=== PATIENT | male | born 1945 | race Caucasian/White ===

== ENCOUNTER 2020-03-26 19:42 | Inpatient (IN) ==
[2020-03-26 20:31] LABS: Basophils % 0.2 %; Hemoglobin 12.5 g/dL (12.9-16.9); Immature Granulocytes % 0.2 % (0-4); Lymphocytes # 0.6 K/mcL (0.6-4.6); Lymphocytes % 12.6 %; Mean Corpuscular HGB Conc 32.9 g/dL (31.6-35.5); Mean Corpuscular Hemoglobin 28.8 pg (28.0-33.3); Mean Corpuscular Volume 87.6 fL (83.0-100.0); Mean Platelet Volume 10.8 fL (9.4-12.4); Monocytes # 0.2 K/mcL (0.0-1.3); Monocytes % 4.3 %; Neutrophils # 3.8 K/mcL (1.6-8.9); Platelet Count 144 K/mcL (140-400); Red Blood Count 4.34 M/mcL (4.19-5.50); Red Cell Distribution Width 13.1 % (11.5-14.5); Segmented Neutrophils % 82.7 %; White Blood Count 4.6 K/mcL (4.3-11.1)
[2020-03-26 20:52] LABS: BUN/Creatinine Ratio 22 (6-26); Blood Urea Nitrogen 44 mg/dL (8-23); Calcium 8.1 mg/dL (8.6-10.3); Carbon Dioxide 19 mEq/L (23-29); Chloride 98 mEq/L (98-107); Glucose 258 mg/dL (70-105); Osmolality,Calculated 286 (280-300); Potassium 4.7 mEq/L (3.5-5.1); Sodium 128 mEq/L (136-145); Troponin I < 0.03 ng/mL (< 0.04); eGFR For African Americans 39 (> 60); eGFR For Non-African Americans 32 (> 60)
[2020-03-26] MEDS ORDERED: 0.9 % Sodium Chloride 1,000 ML IVC ONE (20:58)
[2020-03-27] MEDS ORDERED: Ondansetron 4 MG/2 ML VIAL IVP PRN (00:52)
[2020-03-27] MEDS ORDERED: Naloxone 0.4 MG/ML INJ IVP PRN (00:52)
[2020-03-27] MEDS ORDERED: Dextrose Gel 15 GM/37.5 ML TUBE PO PRN ×2 (00:58)
[2020-03-27] MEDS ORDERED: D5% in Water 1,000 ML IVC PRN (00:58)
[2020-03-27] MEDS ORDERED: *HR* Dextrose 50 % in Water (Vial) 50 ML VIAL IVP PRN (00:58)
[2020-03-27] MEDS ORDERED: Azithromycin 500 MG in 0.9 % Sodium Chloride 250 ML IVPB SCH (01:00)
[2020-03-27] MEDS ORDERED: levoFLOXacin 750 MG/150 ML 750 MG/150 ML BAG IVPB SCH (02:00)
[2020-03-27] MEDS: 0.9 % Sodium Chloride 1,000 ML IVC SCH ×2 (02:13→21:09)
[2020-03-27] MEDS: Gabapentin 300 MG CAPSULE PO SCH ×3 (02:13→21:13)
[2020-03-27 05:28] LABS: Protein/Creatinine Ratio,Urine 0.71 mg/mg (0.00-0.20); Sodium, Urine 58.6 mEq/L
[2020-03-27] MEDS ORDERED: *HR* Enoxaparin 40 MG/0.4 ML SYRINGE SQ SCH (06:00)
[2020-03-27 06:20] LABS: Hematocrit 36.4 % (37.5-50.1); Hemoglobin 11.9 g/dL (12.9-16.9); Immature Granulocytes % 0.7 % (0-4); Lymphocytes # 0.5 K/mcL (0.6-4.6); Lymphocytes % 11.7 %; Mean Corpuscular HGB Conc 32.7 g/dL (31.6-35.5); Mean Corpuscular Hemoglobin 28.9 pg (28.0-33.3); Mean Corpuscular Volume 88.3 fL (83.0-100.0); Mean Platelet Volume 11.1 fL (9.4-12.4); Monocytes # 0.2 K/mcL (0.0-1.3); Monocytes % 3.6 %; Neutrophils # 3.5 K/mcL (1.6-8.9); Platelet Count 140 K/mcL (140-400); Red Blood Count 4.12 M/mcL (4.19-5.50); Red Cell Distribution Width 13.1 % (11.5-14.5); White Blood Count 4.2 K/mcL (4.3-11.1)
[2020-03-27 06:27] LABS: INR 1.6; Prothrombin Time 17.9 Seconds (9.4-12.1)
[2020-03-27 06:44] LABS: Albumin 3.4 g/dL (3.5-5.7); Albumin/Globulin Ratio 1.2 (1.1-2.2); Bilirubin,Total 0.4 mg/dL (0.3-1.0); Calcium 7.7 mg/dL (8.6-10.3); Chol/HDL Ratio 2.9 (0-4.9); Globulin 2.9 g/dL (2.4-3.5); Magnesium 1.9 mg/dL (1.6-2.6); Phosphorous 3.5 mg/dL (2.7-4.5); Potassium 4.7 mEq/L (3.5-5.1); Total Protein 6.3 g/dL (6.4-8.9)
[2020-03-27] MEDS: Insulin LISPRO 300 UNITS/3 ML VIAL SUBQ SCH ×4 (08:38→21:09)
[2020-03-27] MEDS ORDERED: cefTRIAXone 1,000 MG in Water for inj. (sterile) 10 ML IVP SCH (09:00)
[2020-03-27] MEDS: Apixaban 5 MG TABLET PO SCH ×2 (09:07→21:13)
[2020-03-27] MEDS: Dexamethasone Sodium Phos/PF 10 MG/ML VIAL IVP SCH (09:07)
[2020-03-27 10:51] LABS: Estimated Average Glucose 194 mg/dl; Hemoglobin A1C 8.4 %
[2020-03-27 16:48] LABS: Calcium 8.1 mg/dL (8.6-10.3)
[2020-03-27] MEDS: Acetaminophen 325 MG TABLET PO PRN (17:04)
[2020-03-27] MEDS: Insulin DETEMIR 100 UNIT/ML X5UNITS SUBQ SCH ×2 (21:09→21:13)
[2020-03-27] MEDS: Metoprolol XL (24 HR) Succ 25 MG TAB.ER.24H PO SCH (21:13)
[2020-03-28] MEDS: Acetaminophen 325 MG TABLET PO PRN ×4 (01:42→23:54)
[2020-03-28] MEDS: levoFLOXacin 750 MG/150 ML 750 MG/150 ML BAG IVPB SCH (02:21)
[2020-03-28 06:36] LABS: Basophils % 0.1 %; Hematocrit 39.7 % (37.5-50.1); Hemoglobin 13.3 g/dL (12.9-16.9); Immature Granulocytes % 0.4 % (0-4); Lymphocytes # 0.6 K/mcL (0.6-4.6); Lymphocytes % 7.9 %; Mean Corpuscular HGB Conc 33.5 g/dL (31.6-35.5); Mean Corpuscular Hemoglobin 29.4 pg (28.0-33.3); Mean Corpuscular Volume 87.6 fL (83.0-100.0); Mean Platelet Volume 11.5 fL (9.4-12.4); Monocytes # 0.2 K/mcL (0.0-1.3); Monocytes % 2.3 %; Platelet Count 148 K/mcL (140-400); Red Blood Count 4.53 M/mcL (4.19-5.50); Red Cell Distribution Width 13.1 % (11.5-14.5); Segmented Neutrophils % 89.3 %
[2020-03-28 06:39] LABS: Neutrophils # 6.4 K/mcL (1.6-8.9); White Blood Count 7.2 K/mcL (4.3-11.1)
[2020-03-28 06:55] LABS: Calcium 8.3 mg/dL (8.6-10.3); Potassium 4.6 mEq/L (3.5-5.1)
[2020-03-28] MEDS: Insulin LISPRO 300 UNITS/3 ML VIAL SUBQ SCH ×4 (09:10→20:57)
[2020-03-28] MEDS: Dexamethasone Sodium Phos/PF 10 MG/ML VIAL IVP SCH (09:10)
[2020-03-28] MEDS: Metoprolol XL (24 HR) Succ 25 MG TAB.ER.24H PO SCH ×2 (09:11→20:47)
[2020-03-28] MEDS: Gabapentin 300 MG CAPSULE PO SCH ×3 (09:11→20:47)
[2020-03-28] MEDS: Apixaban 5 MG TABLET PO SCH ×2 (09:11→20:47)
[2020-03-28] MEDS ORDERED: Chloraseptic Spray 177 ML BOTTLE MM PRN (17:11)
[2020-03-28] MEDS ORDERED: Ringers Solution, Lactated 1,000 ML IVC SCH (17:15)
[2020-03-28] MEDS: Insulin DETEMIR 100 UNIT/ML X5UNITS SUBQ SCH (20:50)
[2020-03-28] MEDS: diazePAM 5 MG TABLET PO PRN (21:50)
[2020-03-29 02:10] LABS: ABG Base Excess -4 mEq/L (-2 to 3); ABG HCO3 21 mEq/L (21-27); ABG Oxygen Saturation 93 % (95-98); ABG PCO2 34 mmHg (35-45); ABG PO2 66 mmHg (85-104); ABG TCO2 22 mEq/L (20-26)
[2020-03-29] MEDS: levoFLOXacin 750 MG/150 ML 750 MG/150 ML BAG IVPB SCH ×2 (02:30→02:50)
[2020-03-29 08:04] LABS: Basophils % 0.1 %; Hematocrit 38.6 % (37.5-50.1); Hemoglobin 12.9 g/dL (12.9-16.9); Immature Granulocytes % 0.4 % (0-4); Lymphocytes # 0.4 K/mcL (0.6-4.6); Lymphocytes % 6.6 %; Mean Corpuscular HGB Conc 33.4 g/dL (31.6-35.5); Mean Corpuscular Hemoglobin 29.4 pg (28.0-33.3); Mean Corpuscular Volume 87.9 fL (83.0-100.0); Mean Platelet Volume 10.9 fL (9.4-12.4); Monocytes # 0.2 K/mcL (0.0-1.3); Monocytes % 2.4 %; Platelet Count 165 K/mcL (140-400); Red Blood Count 4.39 M/mcL (4.19-5.50); Red Cell Distribution Width 13.2 % (11.5-14.5); Segmented Neutrophils % 90.5 %; White Blood Count 6.7 K/mcL (4.3-11.1)
[2020-03-29] MEDS: Apixaban 5 MG TABLET PO SCH ×2 (08:04→20:28)
[2020-03-29] MEDS: Metoprolol XL (24 HR) Succ 25 MG TAB.ER.24H PO SCH ×2 (08:04→20:24)
[2020-03-29] MEDS: Gabapentin 300 MG CAPSULE PO SCH ×2 (08:04→20:24)
[2020-03-29] MEDS: Dexamethasone Sodium Phos/PF 10 MG/ML VIAL IVP SCH (08:04)
[2020-03-29 08:21] LABS: Potassium 4.6 mEq/L (3.5-5.1)
[2020-03-29] MEDS: Insulin LISPRO 300 UNITS/3 ML VIAL SUBQ SCH ×4 (09:54→20:27)
[2020-03-29 10:41] LABS: Fibrinogen 512 mg/dL (169-393)
[2020-03-29 10:42] LABS: D-Dimer 450 ng/mLFEU (0-500)
[2020-03-29] MEDS: diazePAM 5 MG TABLET PO PRN (11:40)
[2020-03-29] MEDS ORDERED: Furosemide 40 MG/4 ML VIAL IVP ONE (11:57)
[2020-03-29] MEDS: Budesonide/Formoterol 160/4.5 1 PUFF INH IH SCH (19:15)
[2020-03-29] MEDS: Insulin DETEMIR 100 UNIT/ML X5UNITS SUBQ SCH (20:27)
[2020-03-29] MEDS ORDERED: *HR* LORazepam 2 MG/ML VIAL IVP ONE (21:07)
[2020-03-29] MEDS ORDERED: Haloperidol Lactate 5 MG/ML VIAL IVP ONE (22:28)
[2020-03-29] MEDS: Dexmedetomidine HCl 400 MCG/100 ML MLS IVC SCH (23:22)
[2020-03-30] MEDS: levoFLOXacin 750 MG/150 ML 750 MG/150 ML BAG IVPB SCH (02:18)
[2020-03-30 06:04] LABS: Hematocrit 38.1 % (37.5-50.1); Hemoglobin 12.6 g/dL (12.9-16.9); Immature Granulocytes % 1.2 % (0-4); Lymphocytes # 0.5 K/mcL (0.6-4.6); Lymphocytes % 8.3 %; Mean Corpuscular HGB Conc 33.1 g/dL (31.6-35.5); Mean Corpuscular Hemoglobin 28.6 pg (28.0-33.3); Mean Corpuscular Volume 86.6 fL (83.0-100.0); Mean Platelet Volume 11.8 fL (9.4-12.4); Monocytes # 0.2 K/mcL (0.0-1.3); Monocytes % 3.9 %; Neutrophils # 4.9 K/mcL (1.6-8.9); Platelet Count 164 K/mcL (140-400); Segmented Neutrophils % 86.6 %; White Blood Count 5.6 K/mcL (4.3-11.1)
[2020-03-30 06:27] LABS: Calcium 7.8 mg/dL (8.6-10.3)
[2020-03-30 06:29] LABS: Platelet Estimate Normal (Normal)
[2020-03-30] MEDS: Budesonide/Formoterol 160/4.5 1 PUFF INH IH SCH ×2 (07:51→21:10)
[2020-03-30] MEDS: Doxycycline 100 MG in 0.9 % Sodium Chloride Mini Bag 100 ML IVPB SCH ×2 (08:07→19:47)
[2020-03-30] MEDS: Insulin LISPRO 300 UNITS/3 ML VIAL SUBQ SCH ×3 (08:09→21:04)
[2020-03-30] MEDS: Dexmedetomidine HCl 400 MCG/100 ML MLS IVC SCH (10:45)
[2020-03-30] MEDS ORDERED: Insulin DETEMIR 100 UNIT/ML X5UNITS SUBQ ONE (12:26)
[2020-03-30] MEDS ORDERED: Artificial Tears SOLN 15 ML BOTTLE BOTH EYES PRN (12:34)
[2020-03-30] MEDS: Cholecalciferol (D-3) 1,000 UNIT (25MCG) TABLET PO SCH (12:40)
[2020-03-30] MEDS: Metoprolol XL (24 HR) Succ 25 MG TAB.ER.24H PO SCH ×2 (12:40→19:49)
[2020-03-30] MEDS: Apixaban 5 MG TABLET PO SCH ×2 (12:41→19:49)
[2020-03-30] MEDS: Gabapentin 300 MG CAPSULE PO SCH ×2 (12:41→19:49)
[2020-03-30] MEDS: Insulin DETEMIR 100 UNIT/ML X5UNITS SUBQ SCH (19:50)
[2020-03-30] MEDS: diazePAM 5 MG TABLET PO PRN (21:06)
[2020-03-31] MEDS: Budesonide/Formoterol 160/4.5 1 PUFF INH IH SCH ×2 (07:52→20:25)
[2020-03-31 07:55] LABS: Hematocrit 38.1 % (37.5-50.1); Hemoglobin 12.7 g/dL (12.9-16.9); Mean Corpuscular HGB Conc 33.3 g/dL (31.6-35.5); Mean Corpuscular Hemoglobin 29.1 pg (28.0-33.3); Mean Corpuscular Volume 87.2 fL (83.0-100.0); Mean Platelet Volume 12.2 fL (9.4-12.4); Platelet Count 185 K/mcL (140-400); Red Blood Count 4.37 M/mcL (4.19-5.50); Red Cell Distribution Width 12.8 % (11.5-14.5)
[2020-03-31 08:04] LABS: White Blood Count 11.4 K/mcL (4.3-11.1)
[2020-03-31 08:13] LABS: Calcium 7.8 mg/dL (8.6-10.3); Potassium 4.7 mEq/L (3.5-5.1)
[2020-03-31 08:33] LABS: Lymphocytes # 0.7 K/mcL (0.6-4.6); Monocytes # 0.7 K/mcL (0.0-1.3); Platelet Estimate Normal (Normal)
[2020-03-31] MEDS: Metoprolol XL (24 HR) Succ 25 MG TAB.ER.24H PO SCH ×2 (08:46→20:35)
[2020-03-31] MEDS: Doxycycline 100 MG in 0.9 % Sodium Chloride Mini Bag 100 ML IVPB SCH ×2 (08:46→20:35)
[2020-03-31] MEDS: Gabapentin 300 MG CAPSULE PO SCH ×2 (08:46→20:36)
[2020-03-31] MEDS: Apixaban 5 MG TABLET PO SCH ×2 (08:46→20:35)
[2020-03-31] MEDS: Cholecalciferol (D-3) 1,000 UNIT (25MCG) TABLET PO SCH (08:46)
[2020-03-31] MEDS: Insulin LISPRO 300 UNITS/3 ML VIAL SUBQ SCH ×4 (08:48→23:02)
[2020-03-31] MEDS: Dexmedetomidine HCl 400 MCG/100 ML MLS IVC SCH (17:19)
[2020-03-31] MEDS: Insulin DETEMIR 100 UNIT/ML X5UNITS SUBQ SCH (20:46)
[2020-04-01] MEDS: Dexmedetomidine HCl 400 MCG/100 ML MLS IVC SCH ×3 (04:31→22:55)
[2020-04-01 05:15] LABS: Basophils % 0.2 %; Hematocrit 38.2 % (37.5-50.1); Hemoglobin 12.7 g/dL (12.9-16.9); Immature Granulocytes % 1.9 % (0-4); Lymphocytes # 0.8 K/mcL (0.6-4.6); Lymphocytes % 5.3 %; Mean Corpuscular HGB Conc 33.2 g/dL (31.6-35.5); Mean Corpuscular Hemoglobin 28.9 pg (28.0-33.3); Mean Corpuscular Volume 86.8 fL (83.0-100.0); Monocytes # 0.6 K/mcL (0.0-1.3); Monocytes % 3.7 %; Platelet Count 205 K/mcL (140-400); Red Cell Distribution Width 12.9 % (11.5-14.5); Segmented Neutrophils % 88.9 %
[2020-04-01 05:28] LABS: Neutrophils # 13.3 K/mcL (1.6-8.9)
[2020-04-01 05:29] LABS: Calcium 7.8 mg/dL (8.6-10.3); Potassium 4.7 mEq/L (3.5-5.1)
[2020-04-01 05:47] LABS: Platelet Estimate Normal (Normal)
[2020-04-01 05:48] LABS: Anisocytosis 1+ (Not Present); Toxic Granulation Present (Not Present)
[2020-04-01] MEDS: Metoprolol XL (24 HR) Succ 25 MG TAB.ER.24H PO SCH ×3 (08:26→19:42)
[2020-04-01] MEDS: Cholecalciferol (D-3) 1,000 UNIT (25MCG) TABLET PO SCH (08:26)
[2020-04-01] MEDS: Gabapentin 300 MG CAPSULE PO SCH ×2 (08:26→19:42)
[2020-04-01] MEDS: Doxycycline 100 MG in 0.9 % Sodium Chloride Mini Bag 100 ML IVPB SCH ×2 (08:27→19:41)
[2020-04-01] MEDS: Apixaban 5 MG TABLET PO SCH ×2 (08:27→19:42)
[2020-04-01] MEDS: Insulin LISPRO 300 UNITS/3 ML VIAL SUBQ SCH ×4 (08:28→20:12)
[2020-04-01] MEDS: Budesonide/Formoterol 160/4.5 1 PUFF INH IH SCH ×2 (08:40→20:10)
[2020-04-01] MEDS ORDERED: Insulin DETEMIR 100 UNIT/ML X5UNITS SUBQ ONE (11:50)
[2020-04-01] MEDS ORDERED: Ringers Solution, Lactated 1,000 ML IVC SCH (16:45)
[2020-04-01] MEDS: Insulin DETEMIR 100 UNIT/ML X5UNITS SUBQ SCH (19:44)
[2020-04-01] MEDS ORDERED: Insulin DETEMIR 100 UNIT/ML X5UNITS SUBQ SCH (21:00)
[2020-04-01] MEDS: diazePAM 5 MG TABLET PO PRN (22:49)
[2020-04-02] MEDS: Budesonide/Formoterol 160/4.5 1 PUFF INH IH SCH ×2 (08:11→22:52)
[2020-04-02] MEDS: Metoprolol XL (24 HR) Succ 25 MG TAB.ER.24H PO SCH ×2 (08:19→21:40)
[2020-04-02] MEDS: Cholecalciferol (D-3) 1,000 UNIT (25MCG) TABLET PO SCH (08:19)
[2020-04-02] MEDS: Apixaban 5 MG TABLET PO SCH ×2 (08:20→20:20)
[2020-04-02] MEDS: Gabapentin 300 MG CAPSULE PO SCH ×2 (08:20→20:20)
[2020-04-02] MEDS: Insulin DETEMIR 100 UNIT/ML X5UNITS SUBQ SCH ×2 (08:20→21:24)
[2020-04-02] MEDS: Insulin LISPRO 300 UNITS/3 ML VIAL SUBQ SCH ×4 (08:20→21:24)
[2020-04-02] MEDS: Doxycycline 100 MG in 0.9 % Sodium Chloride Mini Bag 100 ML IVPB SCH ×2 (10:39→20:23)
[2020-04-02] MEDS: Dexamethasone Sodium Phos/PF 10 MG/ML VIAL IVP SCH (10:39)
[2020-04-02 11:56] LABS: Hematocrit 40.6 % (37.5-50.1); Hemoglobin 13.2 g/dL (12.9-16.9); Mean Corpuscular HGB Conc 32.5 g/dL (31.6-35.5); Mean Corpuscular Hemoglobin 28.1 pg (28.0-33.3); Mean Corpuscular Volume 86.4 fL (83.0-100.0); Mean Platelet Volume 12.1 fL (9.4-12.4); Monocytes # 0.3 K/mcL (0.0-1.3); Platelet Count 212 K/mcL (140-400); Red Cell Distribution Width 12.8 % (11.5-14.5); White Blood Count 16.9 K/mcL (4.3-11.1)
[2020-04-02 12:06] LABS: Calcium 8.1 mg/dL (8.6-10.3); Potassium 4.3 mEq/L (3.5-5.1)
[2020-04-02 14:14] LABS: Lymphocytes # 0.3 K/mcL (0.6-4.6); Neutrophils # 16.2 K/mcL (1.6-8.9)
[2020-04-02 14:15] LABS: Platelet Estimate Normal (Normal)
[2020-04-02] MEDS: Dexmedetomidine HCl 400 MCG/100 ML MLS IVC SCH (21:48)
[2020-04-03 05:30] LABS: Basophils # 0.1 K/mcL (0.0-0.2); Basophils % 0.8 %; Eosinophils % 0.1 %; Hematocrit 39.2 % (37.5-50.1); Hemoglobin 12.9 g/dL (12.9-16.9); Immature Granulocytes % 6.7 % (0-4); Lymphocytes # 0.8 K/mcL (0.6-4.6); Lymphocytes % 4.7 %; Mean Corpuscular HGB Conc 32.9 g/dL (31.6-35.5); Mean Corpuscular Hemoglobin 28.5 pg (28.0-33.3); Mean Corpuscular Volume 86.5 fL (83.0-100.0); Mean Platelet Volume 11.8 fL (9.4-12.4); Monocytes # 0.4 K/mcL (0.0-1.3); Monocytes % 2.3 %; Neutrophils # 13.6 K/mcL (1.6-8.9); Platelet Count 201 K/mcL (140-400); Red Blood Count 4.53 M/mcL (4.19-5.50); Red Cell Distribution Width 13.2 % (11.5-14.5); Segmented Neutrophils % 85.4 %; White Blood Count 15.9 K/mcL (4.3-11.1)
[2020-04-03 05:47] LABS: Calcium 8.1 mg/dL (8.6-10.3); Potassium 4.5 mEq/L (3.5-5.1)
[2020-04-03 05:52] LABS: Platelet Estimate Normal (Normal)
[2020-04-03] MEDS: Metoprolol XL (24 HR) Succ 25 MG TAB.ER.24H PO SCH ×2 (08:51→20:48)
[2020-04-03] MEDS: Gabapentin 300 MG CAPSULE PO SCH ×2 (08:51→20:48)
[2020-04-03] MEDS: Cholecalciferol (D-3) 1,000 UNIT (25MCG) TABLET PO SCH (08:51)
[2020-04-03] MEDS: Apixaban 5 MG TABLET PO SCH ×2 (08:51→20:48)
[2020-04-03] MEDS: Doxycycline 100 MG in 0.9 % Sodium Chloride Mini Bag 100 ML IVPB SCH (08:52)
[2020-04-03] MEDS: Dexamethasone Sodium Phos/PF 10 MG/ML VIAL IVP SCH (08:52)
[2020-04-03] MEDS: Insulin LISPRO 300 UNITS/3 ML VIAL SUBQ SCH ×4 (08:58→21:35)
[2020-04-03] MEDS ORDERED: Dexamethasone Sodium Phos/PF 10 MG/ML VIAL IVP SCH (09:00)
[2020-04-03] MEDS: Insulin DETEMIR 100 UNIT/ML X5UNITS SUBQ SCH ×2 (09:01→20:48)
[2020-04-03] MEDS: Budesonide/Formoterol 160/4.5 1 PUFF INH IH SCH ×2 (10:34→23:03)
[2020-04-03] MEDS: diazePAM 5 MG TABLET PO PRN ×2 (10:46→20:47)
[2020-04-03] MEDS: Doxycycline 100 MG CAPSULE PO SCH (20:47)
[2020-04-04] MEDS: *HR* LORazepam 2 MG/ML VIAL IVP PRN ×3 (00:08→22:07)
[2020-04-04] MEDS: Dexmedetomidine HCl 400 MCG/100 ML MLS IVC SCH (05:48)
[2020-04-04] MEDS: Insulin LISPRO 300 UNITS/3 ML VIAL SUBQ SCH ×4 (09:11→21:46)
[2020-04-04] MEDS: Apixaban 5 MG TABLET PO SCH ×2 (09:17→19:50)
[2020-04-04] MEDS: Metoprolol XL (24 HR) Succ 25 MG TAB.ER.24H PO SCH ×2 (09:17→19:50)
[2020-04-04] MEDS: Doxycycline 100 MG CAPSULE PO SCH (09:17)
[2020-04-04] MEDS: Furosemide 20 MG/2 ML VIAL IVP SCH (09:18)
[2020-04-04] MEDS: Gabapentin 300 MG CAPSULE PO SCH ×2 (09:18→19:50)
[2020-04-04] MEDS: Cholecalciferol (D-3) 1,000 UNIT (25MCG) TABLET PO SCH (09:18)
[2020-04-04] MEDS: Dexamethasone Sodium Phos/PF 10 MG/ML VIAL IVP SCH (09:19)
[2020-04-04] MEDS: Budesonide/Formoterol 160/4.5 1 PUFF INH IH SCH ×2 (10:53→20:10)
[2020-04-04] MEDS: Insulin DETEMIR 100 UNIT/ML X5UNITS SUBQ SCH ×2 (11:26→21:45)
[2020-04-04 13:39] LABS: Hematocrit 38.5 % (37.5-50.1); Hemoglobin 13.1 g/dL (12.9-16.9); Mean Corpuscular Hemoglobin 29.5 pg (28.0-33.3); Mean Corpuscular Volume 86.7 fL (83.0-100.0); Mean Platelet Volume 11.6 fL (9.4-12.4); Neutrophils # 15.6 K/mcL (1.6-8.9); Nucleated Red Blood Cells 0.1 /100 WBC (0); Platelet Count 198 K/mcL (140-400); Red Blood Count 4.44 M/mcL (4.19-5.50); Red Cell Distribution Width 13.2 % (11.5-14.5); White Blood Count 17.3 K/mcL (4.3-11.1)
[2020-04-04 13:55] LABS: Calcium 8.2 mg/dL (8.6-10.3); Potassium 4.6 mEq/L (3.5-5.1)
[2020-04-04 14:23] LABS: Lymphocytes # 0.7 K/mcL (0.6-4.6); Monocytes # 0.7 K/mcL (0.0-1.3); Platelet Estimate Normal (Normal)
[2020-04-04 14:32] LABS: ABG Base Excess -6 mEq/L (-2 to 3); ABG HCO3 18 mEq/L (21-27); ABG Oxygen Saturation 95 % (95-98); ABG PCO2 29 mmHg (35-45); ABG PH 7.39 pH Units (7.32-7.45); ABG PO2 74 mmHg (85-104); ABG TCO2 18 mEq/L (20-26)
[2020-04-04] MEDS: diazePAM 5 MG TABLET PO PRN (19:50)
[2020-04-04] MEDS: Doxycycline 100 MG in 0.9 % Sodium Chloride Mini Bag 100 ML IVPB SCH (19:53)
[2020-04-04] MEDS: Acetaminophen 325 MG TABLET PO PRN (22:06)
[2020-04-04] MEDS ORDERED: SUMAtriptan succinate 50 MG TABLET PO ONE (23:05)
[2020-04-04] MEDS ORDERED: Prochlorperazine 10 MG/2 ML VIAL IVP ONE (23:05)
[2020-04-05 06:58] LABS: Hematocrit 42.8 % (37.5-50.1); Mean Corpuscular HGB Conc 32.7 g/dL (31.6-35.5); Mean Corpuscular Hemoglobin 28.4 pg (28.0-33.3); Mean Corpuscular Volume 86.8 fL (83.0-100.0); Mean Platelet Volume 11.3 fL (9.4-12.4); Platelet Count 199 K/mcL (140-400); Red Blood Count 4.93 M/mcL (4.19-5.50); Red Cell Distribution Width 13.2 % (11.5-14.5)
[2020-04-05 07:09] LABS: Calcium 8.3 mg/dL (8.6-10.3); Potassium 4.4 mEq/L (3.5-5.1)
[2020-04-05] MEDS: Insulin LISPRO 300 UNITS/3 ML VIAL SUBQ SCH ×4 (08:02→19:56)
[2020-04-05 08:08] LABS: Lymphocytes # 0.6 K/mcL (0.6-4.6); Neutrophils # 19.4 K/mcL (1.6-8.9)
[2020-04-05] MEDS: Doxycycline 100 MG in 0.9 % Sodium Chloride Mini Bag 100 ML IVPB SCH (08:12)
[2020-04-05 08:13] LABS: Platelet Estimate Normal (Normal)
[2020-04-05] MEDS: Dexamethasone Sodium Phos/PF 10 MG/ML VIAL IVP SCH (08:13)
[2020-04-05] MEDS: Gabapentin 300 MG CAPSULE PO SCH ×2 (08:13→19:53)
[2020-04-05] MEDS: Cholecalciferol (D-3) 1,000 UNIT (25MCG) TABLET PO SCH (08:13)
[2020-04-05] MEDS: Furosemide 20 MG/2 ML VIAL IVP SCH (08:13)
[2020-04-05] MEDS: Apixaban 5 MG TABLET PO SCH ×2 (08:14→19:53)
[2020-04-05] MEDS: Metoprolol XL (24 HR) Succ 25 MG TAB.ER.24H PO SCH ×2 (08:14→19:53)
[2020-04-05] MEDS: Insulin DETEMIR 100 UNIT/ML X5UNITS SUBQ SCH ×2 (08:15→19:59)
[2020-04-05] MEDS: *HR* LORazepam 2 MG/ML VIAL IVP PRN ×3 (10:09→23:23)
[2020-04-05] MEDS ORDERED: *HR* Promethazine 25 MG/ML VIAL IM ONE (10:24)
[2020-04-05] MEDS: Budesonide/Formoterol 160/4.5 1 PUFF INH IH SCH ×2 (10:56→21:32)
[2020-04-05] MEDS: Morphine Sulfate 2 MG/ML SYRINGE IVP PRN ×2 (12:34→21:40)
[2020-04-05] MEDS: diazePAM 5 MG TABLET PO PRN (19:53)
[2020-04-05] MEDS: Loratadine 10 MG TABLET PO SCH (19:53)
[2020-04-06] MEDS: *HR* LORazepam 2 MG/ML VIAL IVP PRN ×3 (05:27→16:25)
[2020-04-06] MEDS: Morphine Sulfate 2 MG/ML SYRINGE IVP PRN ×4 (05:52→22:05)
[2020-04-06 07:05] LABS: Basophils # 0.1 K/mcL (0.0-0.2); Basophils % 0.2 %; Eosinophils % 0.2 %; Hematocrit 43.1 % (37.5-50.1); Hemoglobin 13.5 g/dL (12.9-16.9); Immature Granulocytes % 2.7 % (0-4); Lymphocytes # 0.4 K/mcL (0.6-4.6); Lymphocytes % 1.6 %; Mean Corpuscular HGB Conc 31.3 g/dL (31.6-35.5); Mean Corpuscular Hemoglobin 28.2 pg (28.0-33.3); Mean Platelet Volume 11.9 fL (9.4-12.4); Monocytes # 0.3 K/mcL (0.0-1.3); Neutrophils # 23.3 K/mcL (1.6-8.9); Platelet Count 199 K/mcL (140-400); Red Blood Count 4.79 M/mcL (4.19-5.50); Red Cell Distribution Width 13.4 % (11.5-14.5); Segmented Neutrophils % 94.3 %; White Blood Count 24.7 K/mcL (4.3-11.1)
[2020-04-06 07:06] LABS: Eosinophils # 0.1 K/mcL (0.0-0.6)
[2020-04-06 07:11] LABS: Fibrinogen 582 mg/dL (169-393)
[2020-04-06 07:26] LABS: Albumin/Globulin Ratio 0.8 (1.1-2.2); Bilirubin,Direct 0.2 mg/dL (0.0-0.2); Bilirubin,Indirect 0.6 mg/dL (0.0-1.0); Bilirubin,Total 0.8 mg/dL (0.3-1.0); Calcium 8.6 mg/dL (8.6-10.3); Globulin 3.8 g/dL (2.4-3.5); Magnesium 2.9 mg/dL (1.6-2.6); Potassium 4.6 mEq/L (3.5-5.1); Total Protein 6.8 g/dL (6.4-8.9)
[2020-04-06] MEDS: Dexmedetomidine HCl 400 MCG/100 ML MLS IVC SCH ×4 (07:27→19:01)
[2020-04-06 07:48] LABS: D-Dimer 10842 ng/mLFEU (0-500)
[2020-04-06] MEDS: Dexamethasone Sodium Phos/PF 10 MG/ML VIAL IVP SCH (08:58)
[2020-04-06] MEDS: Insulin LISPRO 300 UNITS/3 ML VIAL SUBQ SCH ×4 (08:58→20:08)
[2020-04-06] MEDS: Furosemide 20 MG/2 ML VIAL IVP SCH (08:59)
[2020-04-06] MEDS: Metoprolol XL (24 HR) Succ 25 MG TAB.ER.24H PO SCH ×2 (09:00→11:13)
[2020-04-06] MEDS: Gabapentin 300 MG CAPSULE PO SCH ×3 (09:00→20:05)
[2020-04-06] MEDS: Apixaban 5 MG TABLET PO SCH ×3 (09:00→20:05)
[2020-04-06] MEDS: Cholecalciferol (D-3) 1,000 UNIT (25MCG) TABLET PO SCH ×2 (09:00→11:13)
[2020-04-06] MEDS: Insulin DETEMIR 100 UNIT/ML X5UNITS SUBQ SCH ×2 (09:00→20:08)
[2020-04-06] MEDS: diazePAM 5 MG TABLET PO PRN (09:00)
[2020-04-06] MEDS: levoFLOXacin 750 MG/150 ML 750 MG/150 ML BAG IVPB SCH (09:01)
[2020-04-06] MEDS: Budesonide/Formoterol 160/4.5 1 PUFF INH IH SCH ×2 (10:51→20:01)
[2020-04-06] MEDS: *HR* Metoprolol 5 MG/5 ML VIAL IVP SCH ×3 (11:18→23:59)
[2020-04-06] MEDS ORDERED: Vancomycin 1,750 MG/517.5 ML IV.SOLN IVPB ONE (14:45)
[2020-04-06] MEDS ORDERED: Vancomycin 1,750 MG in 0.9 % Sodium Chloride 250 ML IVPB SCH (15:00)
[2020-04-06] MEDS: Loratadine 10 MG TABLET PO SCH (20:05)
[2020-04-06] MEDS: *HR* Enoxaparin 100 MG/ML SYRINGE SQ SCH (21:56)
[2020-04-07] MEDS: Dexmedetomidine HCl 400 MCG/100 ML MLS IVC SCH ×3 (04:45→15:56)
[2020-04-07] MEDS: *HR* Metoprolol 5 MG/5 ML VIAL IVP SCH ×3 (05:50→17:52)
[2020-04-07 06:35] LABS: Basophils % 0.1 %; Eosinophils % 0.1 %; Hematocrit 43.2 % (37.5-50.1); Hemoglobin 13.7 g/dL (12.9-16.9); Immature Granulocytes % 1.3 % (0-4); Lymphocytes # 0.3 K/mcL (0.6-4.6); Lymphocytes % 1.3 %; Mean Corpuscular HGB Conc 31.7 g/dL (31.6-35.5); Mean Corpuscular Hemoglobin 28.2 pg (28.0-33.3); Mean Corpuscular Volume 89.1 fL (83.0-100.0); Monocytes # 0.2 K/mcL (0.0-1.3); Monocytes % 0.8 %; Neutrophils # 20.3 K/mcL (1.6-8.9); Platelet Count 163 K/mcL (140-400); Red Blood Count 4.85 M/mcL (4.19-5.50); Red Cell Distribution Width 13.3 % (11.5-14.5); Segmented Neutrophils % 96.4 %; White Blood Count 21.1 K/mcL (4.3-11.1)
[2020-04-07 06:42] LABS: Fibrinogen 538 mg/dL (169-393)
[2020-04-07 06:44] LABS: D-Dimer 4948 ng/mLFEU (0-500)
[2020-04-07] MEDS: Morphine Sulfate 2 MG/ML SYRINGE IVP PRN ×2 (06:49→13:41)
[2020-04-07 06:54] LABS: Calcium 8.5 mg/dL (8.6-10.3); Magnesium 3.1 mg/dL (1.6-2.6); Potassium 4.8 mEq/L (3.5-5.1)
[2020-04-07] MEDS: levoFLOXacin 750 MG/150 ML 750 MG/150 ML BAG IVPB SCH (08:08)
[2020-04-07] MEDS: *HR* LORazepam 2 MG/ML VIAL IVP PRN ×3 (08:08→15:10)
[2020-04-07] MEDS: *HR* Enoxaparin 100 MG/ML SYRINGE SQ SCH (08:08)
[2020-04-07] MEDS: Insulin LISPRO 300 UNITS/3 ML VIAL SUBQ SCH ×3 (08:31→17:53)
[2020-04-07] MEDS: Gabapentin 300 MG CAPSULE PO SCH (08:32)
[2020-04-07] MEDS: Cholecalciferol (D-3) 1,000 UNIT (25MCG) TABLET PO SCH (08:32)
[2020-04-07] MEDS: Budesonide/Formoterol 160/4.5 1 PUFF INH IH SCH ×2 (10:05→22:50)
[2020-04-07] MEDS: Insulin DETEMIR 100 UNIT/ML X5UNITS SUBQ SCH (10:05)
[2020-04-07] MEDS ORDERED: Vancomycin 1,750 MG/517.5 ML IV.SOLN IVPB SCH (16:00)
[2020-04-07 16:19] VITALS: BP 120/80
[2020-04-07] MEDS ORDERED: Vancomycin 2,000 MG/520 ML IV.SOLN IVPB SCH (18:00)
[2020-04-07] MEDS ORDERED: Morphine Sulfate 2 MG/ML SYRINGE IVP PRN (18:31)
[2020-04-07] MEDS ORDERED: *HR* LORazepam 2 MG/ML VIAL IVP PRN (18:32)
[2020-04-07] MEDS ORDERED: *HR* LORazepam Oral Conc 2 MG/ML PO PRN (18:32)
[2020-04-07] MEDS ORDERED: Morphine Sulfate Oral CONC 10 MG/0.5 ML ORAL.SYG SL PRN (18:32)
== END 2020-04-07 22:45 | disposition expired | DRG 871 ==
LOC: EMEROOARM 19:42 → 2NENU 19:42 → SUATTDRO 03-27 00:23 → 2NENU 03-27 00:48 → SUATTDRO 03-27 14:10 → 2NENU 04-04 19:23
PROVIDERS: ADMIT Internal Medicine; ATTEND Pharmacist